=== PATIENT | female | born 1965 | race Caucasian/White ===

== ENCOUNTER 2018-12-13 11:35 | Emergency (ER) | payer MEDICARE ==
[~2018-12-13] VITALS: Ht 152.4 cm; Wt 82.7 kg
[~2018-12-13 11:35] MED LIST: ALEVE220 MG PO; [UNRECOGNIZED DRUG - OTHER] PO
[2018-12-13 11:50] VITALS: Ht 152.4 cm; Wt 82.7 kg
[2018-12-13] MEDS ORDERED: EC-NAPROSYN500 MG PO (14:03)
[2018-12-13] MEDS ORDERED: ROBAXIN500 MG PO (14:03)
[2018-12-13 14:29] VITALS: BP 185/103
== END 2018-12-13 14:28 | disposition home or self-care (01) ==
LOC: D.ER 11:35
DX: S00.83XA Contusion of other part of head, initial encounter (principal); W18.31XA Fall on same level due to stepping on an object, initial encounter; Y93.89 Activity, other specified; Y92.89 Other specified places as the place of occurrence of the external cause; S06.0X0A Concussion without loss of consciousness, initial encounter; M62.838 Other muscle spasm; S83.91XA Sprain of unspecified site of right knee, initial encounter

== ENCOUNTER 2019-03-02 15:30 | Inpatient (IN) | payer MEDICARE ==
[~2019-03-02 15:30] MED LIST changes: +EC-NAPROSYN500 MG PO; +ROBAXIN500 MG PO
[2019-03-02 16:16] LABS: APPEARANCE CLEAR (CLEAR); BILIRUBIN NEGATIVE (NEGATIVE); COLOR STRAW (YELLOW); GLUCOSE NEGATIVE (NEGATIVE); KETONE NEGATIVE (NEGATIVE); NITRITE NEGATIVE (NEGATIVE); PROTEIN TRACE mg/dL (NEGATIVE); SPECIFIC GRAVITY 1.015 (1.005-1.020); UROBILINOGEN NORMAL (NORMAL)
[2019-03-02 16:30] LABS: BASOPHILS 0.1 % (0-2); EOSINOPHILS 3.6 % (0-7); HEMATOCRIT 36.5 % (36.0-48.0); HEMOGLOBIN 12.7 g/dL (12-16); IMMATURE GRANULOCYTES 0.1 % (0-5); LYMPHOCYTES 36.7 % (15-50); MCH 29.4 pg (26.0-34.0); MCHC 34.8 g/dL (31.0-37.0); MCV 84.5 fL (80.0-100.0); MEAN PLATELET VOLUME 9.9 fL (7.4-10.4); MONOCYTES 7.1 % (2-11); NEUTROPHILS 52.4 % (40-80); PLATELET COUNT 210 10x3/uL (130-400); RBC 4.32 10x6/uL (4.00-5.40); RDW 13.1 % (11.5-14.5); WBC 7.9 10x3/uL (4.8-10.8)
[2019-03-02 16:45] LABS: ALBUMIN 3.6 g/dL (3.4-5.0); ALKALINE PHOSPHATASE 84 U/L (46-116); ALT (SGPT) 26 U/L (10-68); BILIRUBIN - TOTAL 0.98 mg/dL (0.2-1.3); CALC OSMOLALITY 279 mosm/kg (275-300); CALCIUM 8.9 mg/dL (8.5-10.1); CARBON DIOXIDE 22.4 mmol/L (21.0-32.0); CHLORIDE - SERUM 104 mmol/L (98-107); CREATININE - SERUM 0.7 mg/dL (0.6-1.3); GLUCOSE 80 mg/dL (74-106); POTASSIUM - SERUM 3.5 mmol/L (3.5-5.1); PROTEIN - SERUM 7.2 g/dL (6.4-8.2); SODIUM 140 mmol/L (136-145); UREA NITROGEN 18 mg/dL (7-18); eGFR NON AFRICAN AMERICAN > 90 mL/min (90-120)
[2019-03-02 16:59] LABS: CKMB 2.8 U/L (0.0-3.6); CREATINE KINASE 184 UL (21-215)
[2019-03-02 17:14] LABS: TROPONIN-I < 0.017 ng/mL (0.000-0.060)
--- NOTE | 2019-03-02 17:30 | NUR ---
PATIENT AWAKE AND ALERT, COLOR WNL FOR RACE. NO NEEDS NOTED. UPDATED ON PLAN OF CARE AND DELAYS IN CARE. WILL CONTINUE TO MONITOR. FAMILY AT BEDSIDE.
--- NOTE | 2019-03-02 18:30 | NUR ---
PATIENT AWAKE AND ALERT, COLOR WNL FOR RACE. RESPIRATIONS EVEN AND UNLABORED. UPDATED ON PLAN OF CARE AND DELAYS IN CARE. WILL CONTINUE TO MONITOR.
--- NOTE | 2019-03-02 19:20 | NUR ---
REPORT GIVEN TO JONAH HINTON IN SBAR FORMAT
--- NOTE | 2019-03-02 21:10 | NUR ---
ADMIT TO ROOM 2120 FROM ER. ALERT/ORIENTED. ACCOMPANIED BY FAMILY X 1. RESPS NONLABORED. TELEMETRY STARTED 42 SINUS DAVI NOTED. ER REPORTED THAT PT HAD BEEN IN SB ENTIRE TIME IN ER. ADMISSION HISTORY AND ASSESSMENT COMPLETED. IVF NS @ 100ML/HR INFUSING TO RIGHT WRIST. MONITOR AND CPOC.
[2019-03-02] MEDS ORDERED: LISINOPRIL20 MG PO (21:34)
[2019-03-02] MEDS ORDERED: CATAPRES0.1 MG (21:35)
[2019-03-02 22:34] VITALS: BMI 35.2
[2019-03-03 01:17] VITALS: BP 145/84
[2019-03-03 05:55] VITALS: BP 176/68
--- NOTE | 2019-03-03 06:08 | NUR ---
IVF NS 1LITER COMPLETED. PT RESTING HEARTRATE HAS BEEN 36 TO 50 BRADYCARDIA. PT IS ASYMPTOMATIC AND ROUSES EASILY WITH ALL CHECKING. MONITOR AND CPOC.
[2019-03-03 08:05] VITALS: BP 192/90
--- NOTE | 2019-03-03 08:41 | NUR ---
ASSESSMENT COMPLETED. ALERT AND ORIENTED.TELEMERTY SHOWS SB 45. UP AB MANI. SL TO RIGHT FOREARM. B/P 190/92. PT GIVEN APRESOLINE 10 MG PER ORDER. SR UP WITH CALL LIGHT IN REACH, WILL MONITOR
[2019-03-03] MEDS ORDERED: CELEXA20 MG PO (10:05)
[2019-03-03] MEDS ORDERED: MEXITIL 150 MG150 MG PO (10:07)
[2019-03-03] MEDS ORDERED: LISINOPRIL20 MG PO (10:08)
[2019-03-03] MEDS ORDERED: CATAPRES0.1 MG (10:10)
[2019-03-03 12:00] VITALS: BP 148/94
--- NOTE | 2019-03-03 13:09 | NUR ---
I have reviewed this patient and I concur with the Shift Assessment completed by the Licensed Practical Nurse today this shift.
[2019-03-03 14:56] VITALS: BP 169/72
--- NOTE | 2019-03-03 16:24 | NUR ---
PT LYING IN BED WITH EYES CLOSED. FAMILY AT BEDSIDE. NO DISTRESS NOTED. RESP REG AND NON LABORED.TELEMERTY SHOWS DAVI CARDIA.
--- NOTE | 2019-03-03 18:19 | NUR ---
LYING QUITELY. FAMILY AT BEDSIDE. TELEMERTY SHOWS SB. NO NEEDS VOICED
--- NOTE | 2019-03-03 19:31 | NUR ---
RECIEVED UP IN BED WITH EYES OPEN. ALERT AND ORIENTED X4. UP AD MANI. IV TO RIGHT FA SL.. HEART RATE 59 AT THIS TIME. TELEMETRY IN PLACE. DENIES ANY NEEDS AT THIS TIME.
[2019-03-03 22:04] VITALS: BP 169/74
[2019-03-04 00:04] VITALS: BP 180/76
[2019-03-04 05:41] LABS: BASOPHILS 0.1 % (0-2); EOSINOPHILS 5.1 % (0-7); HEMATOCRIT 41.2 % (36.0-48.0); HEMOGLOBIN 14.6 g/dL (12-16); IMMATURE GRANULOCYTES 0.3 % (0-5); LYMPHOCYTES 28.5 % (15-50); MCH 29.7 pg (26.0-34.0); MCHC 35.4 g/dL (31.0-37.0); MCV 83.9 fL (80.0-100.0); MEAN PLATELET VOLUME 10.5 fL (7.4-10.4); PLATELET COUNT 242 10x3/uL (130-400); RBC 4.91 10x6/uL (4.00-5.40); WBC 7.6 10x3/uL (4.8-10.8)
[2019-03-04 05:55] VITALS: BP 192/87
[2019-03-04 06:51] LABS: ALBUMIN 3.8 g/dL (3.4-5.0); ALKALINE PHOSPHATASE 89 U/L (46-116); ALT (SGPT) 29 U/L (10-68); BILIRUBIN - TOTAL 1.55 mg/dL (0.2-1.3); CALC OSMOLALITY 280 mosm/kg (275-300); CALCIUM 9.2 mg/dL (8.5-10.1); CARBON DIOXIDE 22.6 mmol/L (21.0-32.0); CHLORIDE - SERUM 103 mmol/L (98-107); CREATININE - SERUM 0.7 mg/dL (0.6-1.3); GLUCOSE 93 mg/dL (74-106); POTASSIUM - SERUM 3.4 mmol/L (3.5-5.1); PROTEIN - SERUM 7.6 g/dL (6.4-8.2); SODIUM 140 mmol/L (136-145); UREA NITROGEN 18 mg/dL (7-18); eGFR NON AFRICAN AMERICAN > 90 mL/min (90-120)
--- NOTE | 2019-03-04 07:25 | NUR ---
ASSESSMENT COMPLETED. ALERT AND ORIENTED. TELEMERTY SHOWS SB 54. UP AB MANI. DENIES ANY NEEDS. SR UP WITH CALL LIGHT IN REACH
[2019-03-04 07:55] VITALS: BP 176/98
--- NOTE | 2019-03-04 10:18 | NUR ---
I have reviewed this patient and I concur with the Shift Assessment completed by the Licensed Practical Nurse today this shift.
--- NOTE | 2019-03-04 11:31 | NUR ---
UP WALKING IN ROOM, NO NEEDS VOICED.
[2019-03-04 11:53] VITALS: BP 162/79
[2019-03-04 15:41] VITALS: BP 151/68
[2019-03-04] MEDS ORDERED: CARDURA2 MG PO (16:19)
[2019-03-04] MEDS ORDERED: PROCARDIA XL PO (16:19)
[2019-03-04] MEDS ORDERED: LISINOPRIL-HCT1 EAC7 PO (16:20)
--- NOTE | 2019-03-04 18:33 | NUR ---
PT DISCHARGED. INSTRUCTIONS GIVEN TO PT. TO PRIVATE CAR PER OTIS TINSLEY
--- NOTE | 2019-03-05 09:23 | MORECARE ---
CASE MANAGEMENT DISCHARGE SUMMARY PATIENT: LIBBY RAMOS UNIT: [id number] ADM DATE: 03/02/19 AGE: 53 : 63 SEX: F ROOM/BED: D.2121 AUTHOR: PEGGY CRUZ PHYSICIAN: REFERRING PHYSICIAN: AKILAH MERRILL MD DATE OF SERVICE: 03/05/19 Discharge Plan Patient Name: LIBBY RAMOS Facility: [facility]:[place] : 1965 Planned Disposition: Home Anticipated Discharge Date: 03/04/19 Discharge Date: 03/04/2019 Expected LOS: 2 Initial Reviewer: [email or web address] Initial Review Date: 03/05/2019 Generated: 03/05/19 10:23 am Patient Name: LIBBY RAMOS Page [phone] at 0923 All edits/amendments must be made on the electronic document DICTATION DATE: 03/05/19921 GEOGRAPHY TEACHER: DM 03/05/19921 RPT#: [id number] DC DATE:03/04/19 STATUS: DIS IN [facility] [address] [place] [address] END OF REPORT
--- NOTE | 2019-03-05 10:39 | CN ---
PATIENT NAME:LIBBY LEE MEDICAL RECORD: [id number] : 63 LOCATION:D. D.2121 ADMIT DATE: 03/02/19 ACCOUNT: [id number] CONSULTING PHYSICIAN: MARLI MARTE MD REFERRING PHYSICIAN: AKILAH MERRILL MD DATE OF CONSULTATION: 03/03/2019 ADMITTING DIAGNOSES: 1. Hypertensive emergency. 2. Hypertension. 3. Shortness of breath. 4. Angina. 5. Bradycardia. HISTORY OF PRESENT ILLNESS: Mrs. Lee presents with headache, shortness of breath, chest heaviness, and dizziness. She has had difficult to control her blood pressure. Dr. Rose has been working on her blood pressure. She is only on lisinopril 20 mg a day. She took 2 of these yesterday. She took 2 clonidine as well. She presents here. Her systolic blood pressure is over 220 and she is bradycardic with heart rate sinus in the 40s and 30s. PHYSICAL EXAMINATION: GENERAL APPEARANCE: Well-nourished, well-developed, appears stated age. Level of distress, comfortable. PSYCHIATRIC: Mental status, alert, normal affect. Orientation, oriented to time, place and person. EYES: Lids and conjunctiva, noninjected. No discharge, no pallor. ENT: Lips, teeth, gums, normal dentition. Oropharynx, no cyanosis, no pallor. NECK: Carotid arteries, bilateral normal upstroke, no bruits, no thrills. JUGULAR VEINS: No jugular venous pressure or distention. CERVICAL LYMPH NODES: Nontender, nonenlarged. THYROID: Not enlarged. Nontender. No nodules. LUNGS: Respiratory effort, unlabored. CHEST: Normal curvature. No thoracic deformity. No chest wall tenderness. Percussion, resonant. Auscultation, clear. No wheezes, no rales, no rhonchi. CARDIOVASCULAR: Precordial exam, nondisplaced. No heaves or pericardial thrills. Rate and rhythm, regular. Heart sounds, normal S1, normal S2. No S3, no gallop, no rub. Systolic murmur, not heard. Diastolic murmur, not heard. EXTREMITIES: No cyanosis, no edema. Peripheral pulses, full and equal in all extremities, except as noted. No bruits appreciated. ABDOMEN: Soft, nondistended. Normal aorta. No bruit. Nontender. No masses. Liver, nontender, no hepatomegaly. Spleen, nontender, no splenomegaly. MUSCULOSKELETAL: No joint tenderness. No joint swelling. No erythema. NEUROLOGICAL: Normal gait, normal strength, normal tone. SKIN: Warm and dry. OVERALL IMPRESSION: Shortness of breath, chest discomfort and related to the hypertension and the hypertensive emergency. Dizziness may only be related to the bradycardia. We will put her on Procardia-XL 90 along with lisinopril HCT 20/12.5 b.i.d. and see how this does. We will check back in a few hours to see how this does for her blood pressure. We would like to avoid the clonidine as it can worsen bradycardia. We will use hydralazine as well in the acute setting. TRANSINT:[id number] Voice Confirmation ID: [id number] DOCUMENT ID: [id number] CONSULT REPORT [id number] LIBBY LEE, MARLI GROVER at 1039 CC: [id number] DICTATION DATE: 03/03/1955 PILE TRIMMER: 03/03/19 1231 DIS IN 03/04/19 [place] [id number] [place] [address]
== END 2019-03-04 18:34 | disposition home or self-care (01) | DRG 305 ==
LOC: D.ER 15:30 → D.M2 19:48 → D.EDHOLD 19:48 → D.M2 20:15
PROVIDERS: Family Medicine; Family Medicine Adult Medicine; ADMIT Internal Medicine Nephrology; ATTEND Internal Medicine Nephrology
DX: I16.0 Hypertensive urgency (principal); I10 Essential (primary) hypertension; R00.1 Bradycardia, unspecified; I20.9 Angina pectoris, unspecified; R42 Dizziness and giddiness

== ENCOUNTER 2019-09-24 16:45 | Observation (INO) | payer MEDICARE ==
[~2019-09-24] VITALS: Ht 152.4 cm; Wt 74.1 kg
--- NOTE | ~2019-09-24 | HEMODYNAMI ---
PATIENT:LIBBY RAMOS MEDICAL RECORD: [id number] : 63 [address] [id number] ADMISSION DATE: 09/24/19 Generatedon:09/25/201915:29 Patient name: LIBBY RAMOS Patient #: [id number] SSN: DO B: 1965 Date of study: 09/25/2019 Page: Of Hemodynamic Procedure Report Patient Data Patient Demographics Procedure consent was obtained First Name: LIBBY Gender: Female Last Name: RACHEL : 1965 Middle Initial: DANA Age: 54 year(s) Patient #: [id number] Race: Unknown Additional ID: [id number] Contact details Address: [address] [place] [address] State: [place] City: [facility] Zip code: [address] Admission Admission Data Admission Date: 09/24/2019 Admission Time: 21:03 Room #: D.2124 Lab Results Lab Result Date: 09/25/2019 Lab Result Time: 0:00 Biochemistry Name Units Result Min Max BUN mg/dl 27 --(----)-* 7 18 Creatinine mg/dl 0.8 --(-*--)-- 0.6 1.3 eGFR ml/min 79.14353 *-(----)-- 90 120 NONAFRICAN CBC Name Units Result Min Max Hematocrit % 38.1 *-(----)-- 42 54 Hemoglobin g/dl 12.6 -*(----)-- 13.5 17.5 Procedure Procedure Types Cath Procedure Diagnostic Procedure LHC LHC w/Coronaries Procedure Description Procedure Date Procedure Date: 09/25/2019 Procedure Start Time: 15:14 Procedure End Time: 15:27 Procedure Staff Name Function Wilian Rios MD Performing Physician Bibi Wilkins RT Monitor Carmenza Gutierrez RT Scrub Bhupinder Valdes RN Nurse Procedure Data Cath Procedure Fluoroscopy Diagnostic fluoroscopy Total fluoroscopy Time: 1.1 time: 1.1 min min Diagnostic fluoroscopy Total fluoroscopy dose: 337 dose: 337 mGy mGy Contrast Material Contrast Material Type Amount (ml) Isovue 370 47 Entry Location Entry Primary Successful Side Size Upsize Upsize Entry Closure Succes sful Closure Location (Fr) 1 (Fr) 2 (Fr) Remarks Device Remarks Femoral Right 5 Fr Exoseal artery Estimated blood loss: 5 ml Diagnostic catheters Device Type Used For End Catheter Placement MULTIPACK JL 4.0 5Fr Procedure catheter MULTIPACK 3DRC 5Fr Procedure catheter MULTIPACK Pigtail 5 Fr Procedure catheter Procedure Complications No complications Procedure Medications Medication Administration Route Dosage Oxygen etCO2 Nasal cannula 2 l/min Lidocaine 2% added to field 20 Heparin Flush Bag added to field 2 bags (1000units/500ml NS) 0.9% NaCl I.V. 100 ml/hr Versed I.V. 1 mg Fentanyl I.V. 50 mcg Versed I.V. 1 mg Fentanyl I.V. 50 mcg Versed I.V. 1 mg Hemodynamics Rest HGB: 12.6 (g/dl) Heart Rate: 59 (bpm) Pressure Samples Time Site Value (mmHg) Purpose Heart Use Rate(bpm) 15:18 LV 127/12,15 Snapshot 68 15:19 AO 117/80(100) Pullback 67 Gradients Valve Time Site Site 2 Mean SEP/DFP Peak To Heart Use 1 (mmHg) (sec/min) Peak Rate (mmHg) (bpm) Aortic 15:19 LV AO 20 18 67 117/80(100) Calculations Valve P-P Mean Valve Index Valve Source Name Gradient Area Flow (cm2) Aortic 20 20 Snapshots Pre Cath Intra NCS Post Cath Vital Signs Time Heart Resp SPO2 etCO2 NIBP (mmHg) Rhythm Pain Sedation Rate (ipm) (%) (mmHg) Status Level (bpm) 15:02:22 62 19 96 0 167/107(126) NSR 0 (11) 10(A) , No pain 15:06:43 58 13 95 39.7 139/87(97) NSR 0 (11) 10(A) , No pain 15:11:01 56 14 94 32.2 119/64(89) NSR 0 (11) 10(A) , No pain 15:15:10 56 14 96 31.4 118/63(81) NSR 0 (11) 10(A) , No pain 15:19:16 65 12 97 36.7 134/75(100) NSR 0 (11) 9(A) , No pain 15:23:28 58 15 98 38.2 130/71(90) NSR 0 (11) 9(A) , No pain 15:27:38 61 19 98 38.9 122/75(91) NSR 0 (11) 9(A) , No pain Medications Time Medication Route Dose Verified Delivered Reason Notes Eff ectiveness by by 15:09:15 Oxygen etCO2 2 Wilian Bhupinder used for Nasal l/min St Juancarlos Valdes RN procedure cannula 15:09:23 Lidocaine 2% added 20ml Wilian Wilian for local to vial [facility] anesthetic field MD GROEVR 15:09:29 Heparin Flush added 2 Wilian Wilian used for Bag to bags [facility] procedure (1000units/500ml field MD GROVER NS) 15:09:38 0.9% NaCl I.V. 100 Wilian Buffie Per ml/hr St Juancarlos Valdes RN physician 15:12:44 Versed I.V. 1 mg Wilian [address]ie for St Juancarlos Valdes RN sedation 15:12:50 Fentanyl I.V. 50 Wilian [address] for mcg [facility] Juancarlos Valdes RN sedation 15:15:36 Versed I.V. 1 mg Wilian Moodyie for St Juancarlos Valdes RN sedation 15:15:39 Fentanyl I.V. 50 Wilian [address] for mcg [facility] Juancarlos Valdes RN sedation 15:18:19 Versed I.V. 1 mg Wilian Buffie for St Juancarlos Valdes RN sedation Procedure Log Time Note 14:31:23 Procedure Status Urgent Heart Cath (IP). 14:31:25 Bhupinder Valdes RN sent for patient. Start room use. 14:31:26 Time tracking: Regular hours (M-F 7:00 - 5:00) 14:31:29 Plan of Care:Hemodynamics will remain stable., Cardiac rhythm will remain stable., Comfort level will be maintained., Respiratory function will remain adequate., Patient/ family verbilizes understanding of procedure., Procedure tolerated without complication., Recovers from procedure without complications.. 14:31:30 Signed procedure consent form obtained from patient. 14:48:14 Patient received from Med II to CCL 1 Alert and oriented. Tansferred to table in Supine position. 14:48:15 Warm blankets applied, and esther hugger turned on for patient comfort. 14:48:16 Correct patient and procedure confirmed by team. 14:48:17 ECG and BP/O2 sat monitors applied to patient. 14:48:21 H&P Date Dictated: 09/25/2019 Within 30 days and on chart.. 14:48:21 Pre-procedure instructions explained to patient. 14:48:21 Pre-op teaching completed and patient verbalized understanding. 14:48:23 Family in patients room. 14:48:24 Patient NPO since Midnight. 14:48:27 Is the patient allergic to Iodine/contrast media? No. 14:48:29 Is patient on blood thinner?No 14:48:31 Patient diabetic? No. 14:48:35 Patient not . Patient is over age 55. 14:48:37 Previous problem with sedation/anesthesia? No ? 14:48:37 Snore? Yes 14:48:39 Sleep apnea? No 14:48:40 Deviated septum? No 14:48:40 Opens mouth fully? Yes 14:48:41 Sticks out tongue? Yes 14:48:46 Airway obstruction? No ? 14:48:51 Dentures? Yes OUT 14:49:01 Patient pain scale 0/10 ?. 14:49:06 IV patent on arrival in right hand with 0.9% NaCl at [facility]. 14:59:05 Pre procedure: right dorsailis pedis pulse 2+ Normal; easily identifiable; not easily obliterated 14:59:38 Lab Result : BUN 27 mg/dl 14:59:38 Lab Result : eGFR NONAFRICAN 79.94018 ml/min 14:59:38 Lab Result : Creatinine 0.8 mg/dl 14:59:38 Lab Result : Hemoglobin 12.6 g/dl 14:59:38 Lab Result : Hematocrit 38.1 % 14:59:45 Lab results completed and on chart. 14:59:48 Stress Test: no; N/A ? 15:00:59 Risk of Mortality: .2 15:01:01 Risk of blood transfusion: .5 15:01:04 Risk of LYLY: .4 15:01:07 RT GROIN PREPPED DUE TO THE LOCATION OF THE IV IN THE RIGHT HAND 15:01:08 Right groin area was prepped with chlora-prep and draped in sterile fashion 15:01:09 Alarms reviewed by R. N. 15:01:10 Sharps counted by scrub and verified by REvitaN. 15:01:14 Vital chart was started 15:01:17 Baseline sample Acquired. 15:01:22 Rhythm: sinus bradycardia 15::24 Full Disclosure recording started 15:01:31 Use device set Femoral Dx 15:01:32 ACIST Syringe (90057) opened to sterile field. 15:01:33 Bag Decanter (2002S) opened to sterile field. 15:01:34 ACIST Hand Control (08317) opened to sterile field. 15:01:35 ACIST Manifold (14051) opened to sterile field. 15:01:36 Tegaderm 4 x 4 (1626W) opened to sterile field. 15:01:38 Medline Cath Pack (OMPP25893) opened to sterile field. 15:01:40 DIAGNOSTIC Multipack 5Fr catheter set (BM9016) opened to sterile field. 15:01:41 SHEATH 5FR Dell (WJA969) opened to sterile field. 15:01:41 EMERALD Guide Wire (395-772) opened to sterile field. 15:09:15 Oxygen 2 l/min etCO2 Nasal cannula was administered by Bhupinder Valdes RN; used for procedure; Verbal order read back and verified. 15:09:23 Lidocaine 2% 20ml vial added to field was administered by Wilian Rios MD; for local anesthetic; Verbal order read back and verified. 15:09:29 Heparin Flush Bag (1000units/500ml NS) 2 bags added to field was administered by Wilian Rios MD; used for procedure; Verbal order read back and verified. 15:09:38 0.9% NaCl 100 ml/hr I.V. was administered by Bhupinder Valdes RN; Per physician; Verbal order read back and verified. 15:11:17 --------ALL STOP TIME OUT------ 15:11:18 Final Timeout: patient, procedure, and site verified with staff and physician. All members of the team are in agreement. 15:11:19 Right groin site verified by team. 15:11:22 Fire Safety Assessment: A--An alcohol-based skin anteseptic being used preoperatively., C--Open oxygen or nitrous oxide is being used., D--An ESU, laser, or fiber-optic light is being used. 15:11:25 Physical assessment completed. ASA score P 2 - A patient with mild systemic disease as per Wilian Rios MD. 15:11:43 2) 60-89 Mildly reduced kidney function, and other findings (as for stage 1) point to kidney disease. 15:11:50 Maximum allowable contrast dose (3.7 X eGFR X 0.75)219 ml. 15:11:55 Sedation plan: IV Moderate Sedation Medication:Versed, Fentanyl 15:12:44 Versed 1 mg I.V. was administered by Bhupinder Valdes RN; for sedation; Verbal order read back and verified. 15:12:50 Fentanyl 50 mcg I.V. was administered by Bhupinder Valdes RN; for sedation; Verbal order read back and verified. 15:13:35 Procedure started. 15:13:38 Zero performed for pressure channel P1 15:14:08 Local anesthetic to right femoral artery with Lidocaine 2% by Wilian Rios MD.INITIAL ACCESS ONLY 15:14:48 A 5 Fr sheath was inserted into the Right Femoral artery 15:14:57 A MULTIPACK JL 4.0 5Fr catheter was advanced over the wire and used for Procedure. 15:15:36 Versed 1 mg I.V. was administered by Bhupinder Valdes RN; for sedation; Verbal order read back and verified. 15:15:39 Fentanyl 50 mcg I.V. was administered by Bhupinder Valdes RN; for sedation; Verbal order read back and verified. 15:16:00 LCA angiography performed. 15:16:19 Catheter removed. 15:16:26 A MULTIPACK 3DRC 5Fr catheter was advanced over the wire and used for Procedure. 15:17:33 RCA angiography performed. 15:17:34 ACCDominant side:Right 15:17:35 Catheter removed. 15:17:41 A MULTIPACK Pigtail 5 Fr catheter was advanced over the wire and used for Procedure. 15:18:19 Versed 1 mg I.V. was administered by Bhupinder Valdes RN; for sedation; Verbal order read back and verified. 15:18:46 LV gram done using FISH 15:18:48 Injector settings: Ml/sec: 10, Volume: 20, 15:18:55 LV hemodynamics recorded. 15:18:58 EF : 55 % 15:19:01 Catheter removed. 15:19:19 EXOSEAL 5Fr (EX500) opened to sterile field. 15:19:39 Sheath removed intact; hemostasis achieved with Exoseal to the Right Femoral artery. 15:20:08 Procedure ended.(Physican Out) 15:20:23 Fluoroscopy time 01.10 minutes. 15:20:27 Fluoroscopy dose: 337 mGy 15:20:27 Flurop Dose total: 337 15:20:36 Dose Area Product 33048 mGy/cm. 15:20:42 Contrast amount:Isovue 370 47ml. 15:20:45 Maximum allowable dose exceeded? No. 15:20:46 Sharps counted by scrub and verified by R.N. 15:20:50 Post-op/insertion site Right Femoral artery dressed using a 4 x 4 and Tegaderm. 15:20:52 Post-procedure physical assessment completed. ASA score P 2 - A patient with mild systemic disease as per Wilian Rois MD. 15:20:57 Post procedure rhythm: unchanged. 15:21:03 Estimated blood loss: 5 ml 15:21:05 Post procedure instruction explained to patient.Patient verbalizes understanding. 15:21:05 Patient needs reinforcement of post procedure teaching. 15:21:40 Procedure and supply charges have been captured, reviewed, submitted and are correct. 15:21:50 Procedure Complication : No complications 15:21:[address] [facility] Findings: mild to moderate CAD (<70%) 15:21:58 Operative report dictated upon procedure completion. 15:21:58 See physician's report for complete and final results. 15:26:59 Vital chart was stopped 15:27:04 Report given to [facility]. 15:27:10 Patient transfered to [facility] with Bed. 15:27:12 Procedure ended. 15:27:12 Full Disclosure recording stopped 15:27:15 End room use (Document Last) 15:28:23 End room use (Document Last) 15:28:46 End room use (Document Last) Device Usage Item Name Manufacture Quantity Catalog Hospital Part Current Minimal L ot# / Number Charge Number Stock Stock Serial# Code ACIST Acist 1 83024 753298 905606 484059 20 Syringe Medical (84804) Systems Inc Bag Microtek 1 103269 31562 429509 5 Decanter Medical Inc. () ACIST Hand Acist 1 94312 473166 022553 191263 5 Control Medical (74736) Systems Inc ACIST Acist 1 44984 155866 946151 824415 5 Manifold Medical (31760) Systems Inc Tegaderm 4 3M 1 1626W 904641 638680 570745 5 x 4 (1626W) Medline Medline 1 [id number] 576874 28048 926993 5 Cath Pack ([id number]) DIAGNOSTIC Cardinal 1 JW1283 041320 06923 046340 30 Multipack Red Swoosh 5Fr catheter set (FU8482) SHEATH 5FR Terumo 1 FKQ800 609737 551740 601525 5 Dell (RIE888) EMERALD Cardinal 1 502-455 474222 545242 845610 5 Guide Wire Health (502-473) MULTIPACK Cardinal 1 497300 5 JL 4.0 5Fr Health catheter MULTIPACK Cardinal 1 319873 5 3DRC 5Fr Red Swoosh catheter MULTIPACK Cardinal 1 326614 5 Pigtail 5 Health Fr catheter EXOSEAL 5Fr Cardinal 1 EX500 046963 352244 580956 10 (EX500) Health Signature Audit [place] Stage Time Signature Unsigned Intra-Procedure 09/25/2019 Bibi Wilkins 3:28:23 PM RT(R) Intra-Procedure 09/25/2019 Bhupinder Valdes RN 3:28:46 PM Intra-Procedure 09/25/2019 Wilian Stover 3:29:13 PM Juancarlos [place] [address] [address] [place] [address]
[~2019-09-24 16:45] MED LIST changes: +CARDURA2 MG PO; +CATAPRES0.1 MG; +CELEXA20 MG PO; +LISINOPRIL-HCT1 EAC7 PO; +LISINOPRIL20 MG PO; +MEXITIL 150 MG150 MG PO; +PROCARDIA XL PO
[2019-09-24] MEDS ORDERED: COREG 3.1253.125 MG PO (17:09)
[2019-09-24 17:35] VITALS: BP 128/67
[2019-09-24 18:07] LABS: BASOPHILS 0.1 % (0-2); EOSINOPHILS 1.8 % (0-7); HEMATOCRIT 38.7 % (36.0-48.0); HEMOGLOBIN 12.7 g/dL (12-16); IMMATURE GRANULOCYTES 0.3 % (0-5); LYMPHOCYTES 30.1 % (15-50); MCH 29.8 pg (26.0-34.0); MCHC 32.8 g/dL (31.0-37.0); MCV 90.8 fL (80.0-100.0); MEAN PLATELET VOLUME 9.8 fL (7.4-10.4); MONOCYTES 10.2 % (2-11); NEUTROPHILS 57.5 % (40-80); PLATELET COUNT 211 10x3/uL (130-400); RBC 4.26 10x6/uL (4.00-5.40); RDW 13.4 % (11.5-14.5); WBC 9.4 10x3/uL (4.8-10.8)
[2019-09-24 18:33] LABS: CALC OSMOLALITY 286 mosm/kg (275-300); CALCIUM 8.9 mg/dL (8.5-10.1); CARBON DIOXIDE 27.3 mmol/L (21.0-32.0); CHLORIDE - SERUM 106 mmol/L (98-107); CREATININE - SERUM 0.8 mg/dL (0.6-1.3); GLUCOSE 99 mg/dL (74-106); POTASSIUM - SERUM 3.7 mmol/L (3.5-5.1); SODIUM 141 mmol/L (136-145); UREA NITROGEN 29 mg/dL (7-18); eGFR NON AFRICAN AMERICAN 79 mL/min (90-120)
[2019-09-24 18:38] LABS: PROTIME 12.7 SECONDS (11.6-15.0)
[2019-09-24 18:39] LABS: APTT 27.6 SECONDS (22.8-39.4)
[2019-09-24 18:53] LABS: ALBUMIN 3.5 g/dL (3.4-5.0); ALKALINE PHOSPHATASE 97 U/L (46-116); ALT (SGPT) 34 U/L (10-68); CREATINE KINASE 93 UL (21-215); PROTEIN - SERUM 7.2 g/dL (6.4-8.2)
[2019-09-24 18:57] LABS: TROPONIN-I < 0.017 ng/mL (0.000-0.060)
--- NOTE | 2019-09-24 19:12 | NUR ---
REPROT GIVEN TO [place]
[2019-09-24 20:52] LABS: CKMB 0.8 U/L (0.0-3.6); CREATINE KINASE 89 UL (21-215)
[2019-09-24 20:54] LABS: TROPONIN-I < 0.017 ng/mL (0.000-0.060)
[2019-09-24] MEDS ORDERED: LISINOPRIL-HCT1 EAC8 PO (21:42)
[2019-09-24] MEDS ORDERED: CELEXA20 MG PO (22:24)
[2019-09-24 23:45] VITALS: BP 148/76; Ht 152.4 cm; Wt 74.1 kg
[2019-09-25 02:50] LABS: BASOPHILS 0.1 % (0-2); EOSINOPHILS 3.1 % (0-7); HEMATOCRIT 38.1 % (36.0-48.0); HEMOGLOBIN 12.6 g/dL (12-16); IMMATURE GRANULOCYTES 0.2 % (0-5); LYMPHOCYTES 39.7 % (15-50); MCHC 33.1 g/dL (31.0-37.0); MCV 90.7 fL (80.0-100.0); MEAN PLATELET VOLUME 9.8 fL (7.4-10.4); MONOCYTES 8.5 % (2-11); NEUTROPHILS 48.4 % (40-80); PLATELET COUNT 227 10x3/uL (130-400); RDW 13.3 % (11.5-14.5); WBC 8.1 10x3/uL (4.8-10.8)
[2019-09-25 02:54] LABS: APTT 28.2 SECONDS (22.8-39.4); PROTIME 12.7 SECONDS (11.6-15.0)
[2019-09-25 03:07] LABS: ALBUMIN 3.3 g/dL (3.4-5.0); ALKALINE PHOSPHATASE 84 U/L (46-116); ALT (SGPT) 32 U/L (10-68); CALC OSMOLALITY 285 mosm/kg (275-300); CALCIUM 8.6 mg/dL (8.5-10.1); CHLORIDE - SERUM 106 mmol/L (98-107); CKMB 0.7 U/L (0.0-3.6); CREATINE KINASE 72 UL (21-215); CREATININE - SERUM 0.8 mg/dL (0.6-1.3); GLUCOSE 91 mg/dL (74-106); MAGNESIUM - SERUM 1.8 mg/dL (1.8-2.4); PHOSPHOROUS 3.9 mg/dL (2.5-4.9); POTASSIUM - SERUM 3.8 mmol/L (3.5-5.1); PRO BNP 25 pg/mL (0-125); PROTEIN - SERUM 6.8 g/dL (6.4-8.2); SODIUM 141 mmol/L (136-145); THYROID STIMULATING HORMONE 2.11 uIU/mL (0.36-3.74); TROPONIN-I < 0.017 ng/mL (0.000-0.060); UREA NITROGEN 27 mg/dL (7-18); eGFR NON AFRICAN AMERICAN 79 mL/min (90-120)
--- NOTE | 2019-09-25 03:19 | NUR ---
RESTING WITH EYES CLOSED, RESPERATIONS EVEN, NO S/S DISTRESS NOTED.
[2019-09-25 04:00] VITALS: BP 146/80
[2019-09-25 08:00] VITALS: BP 154/64
--- NOTE | 2019-09-25 08:02 | NUR ---
REPORT RECEIVED. WILL CONTINUE WITH POC. PT CURRENTLY LYING SEMI FOWLERS. CALL LIGHT W/I REACH. PT IS AAO AND UP AD MANI. RR EVEN AND UNLABORED ON RA. NS INFUSING @75ML/HR VIA R.HAND PIV. NO S/S OF DISTRESS NOTED. PT DENIES ANY NEEDS AT THIS TIME. WILL CTM.
[2019-09-25 08:48] LABS: CKMB 0.8 U/L (0.0-3.6); CREATINE KINASE 70 UL (21-215)
[2019-09-25 08:50] LABS: TROPONIN-I < 0.017 ng/mL (0.000-0.060)
[2019-09-25 09:02] LABS: CHOL - HDL RATIO 4.1 ratio (2.3-4.1); LDL-HDL RATIO 2.8 ratio (1.5-3.5)
--- NOTE | 2019-09-25 09:24 | NUR ---
RECEIVED VERBAL ORDERS FROM THAT PT CAN HAVE LIGHT BREAKFAST. ORDER PLACED. NOTIFIED THAT PT RECEIVED AM DOSE OF LOVENOX. HE STATED THAT WAS ACCEPTABLE AND THAT SHE WOULD BE DONE THIS AFTERNOON. WILL SIGN CONSENTS. WILL CTM.
--- NOTE | 2019-09-25 11:15 | CN ---
PATIENT NAME:LIBBY RAMOS MEDICAL RECORD: [id number] : 63 LOCATION:D. D.2124 ADMIT DATE: 09/24/19 ACCOUNT: [id number] CONSULTING PHYSICIAN: LEIGHA MADDEN MD REFERRING PHYSICIAN: FELIPE SHAH MD DATE OF CONSULTATION: 09/25/2019 HISTORY OF PRESENT ILLNESS: A 54-year-old female with no known history of coronary artery disease, has history of hypertension, hyperlipidemia, currently on therapy, strong family history of coronary artery disease, admitted for a week and 10-day history of progressive chest tightness and pressure, moderately controlled blood pressure. Finally, presented to ER with rest symptomology. Pain is described as pressure, tightness, radiating to the left arm, currently without dyspnea. We are asked to see her concerning her cardiovascular status. PAST MEDICAL HISTORY: Includes; 1. History of hypertension. 2. Hyperlipidemia. MEDICATIONS: Typically include Lisinopril and hydrochlorothiazide 10/12.5 one p.o. b.i.d., Celexa 10 mg p.o. every day. SOCIAL HISTORY: Works fulltime, nonsmoker, nondrinker. Easily takes care of all her ADLs. ALLERGIES: PHENERGAN. REVIEW OF SYSTEMS: The patient reports easy bruising but reports no swollen glands. The patient reports no fever, no night sweats, no significant weight gain, no significant weight loss. No significant exercise tolerance. The patient reports no dry eyes, no irritation, no vision change. Patient reports no difficulty hearing and no ear pain. Patient reports no frequent nose bleeds or nose and sinus problems. Patient reports on arm pain on exertion. No shortness of breath while lying down. No history of heart murmur. Patient reports no cough, no wheezing or coughing up blood. Patient reports no abdominal pain, no vomiting. Normal appetite. No diarrhea and not vomiting blood. No nausea and no constipation. Patient reports no incontinence. No difficulty urinating. No hematuria. No increased frequency. Patient reports no muscle aches. No weakness, no arthralgias, no back pain. No swelling of the extremities. Patient reports no abnormal mole, no jaundice, no rashes. Reports no loss of consciousness. No weakness and no numbness. No seizures, dizziness, or headaches. The patient reports no depression, no sleep disturbance, feeling safe in a relationship and no alcohol abuse. Patient reports on fatigue. Reports no runny nose or sinus pressure. No itching, no hives, and no frequent sneezing. PHYSICAL EXAMINATION: GENERAL: Pleasant female in no acute distress, appears stated age. VITAL SIGNS: Blood pressure 146/80, pulse 81 and regular. HEENT: Normocephalic, atraumatic. NECK: No JVD or bruit. HEART: Regular. Questionable S4 gallop. LUNGS: Good air excursion. ABDOMEN: Soft, nontender. EXTREMITIES: Pulses 2+ with no edema. CONSULT REPORT [id number] LIBBY RAMOS DIAGNOSTIC DATA: EKG shows poor R-wave progression. IMPRESSION: Acute coronary syndrome. PLAN: Angiography, intervention based on the above. TRANSINT:[id number] Voice Confirmation ID: [id number] DOCUMENT ID: [id number] LEIGHA MADDEN MD at 1115 CC: [id number] DICTATION DATE: 09/25/1949 SMELTER LINER: 09/25/19 0958 ADM [place] [id number] [place] [id number]
[2019-09-25 12:00] VITALS: BP 114/66
--- NOTE | 2019-09-25 15:36 | NUR ---
I have reviewed this patient and I concur with the Shift Assessment completed by the Licensed Practical Nurse today this shift.
--- NOTE | 2019-09-25 15:50 | NUR ---
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 RIGHT FEM CATH SITE IS C/D/I WITH NO S/S OF HEMATOMA PRESENT. PERIPHERAL PULSES BILATERALLY EVEN AND STRONG. NS INFUSING @200ML/HR VIA R.HAND PIV. NO S/S OF DISTRESS NOTED. WILL CTM.
--- NOTE | 2019-09-25 18:30 | NUR ---
PT DISCHARGED HOME VIA WHEELCHAIR WITH FAMILY. TELEMETRY REMOVED AND RETURNED. PIV REMOVED WITH CATHETER TIP FULLY INTACT. PT SIGNED PROPER DISCHARGE INSTRUCTIONS AND REMOVED ALL VALUABLES FROM THE ROOM.
--- NOTE | 2019-09-26 09:49 | MORECARE ---
CASE MANAGEMENT DISCHARGE SUMMARY PATIENT: LIBBY RAMOS UNIT: [id number] ADM DATE: 09/24/19 AGE: 54 : 63 SEX: F ROOM/BED: D.7424 AUTHOR: PEGGY CRUZ PHYSICIAN: REFERRING PHYSICIAN: FELIPE SHAH MD DATE OF SERVICE: 09/26/19 Discharge Plan Patient Name: LIBBY RAMOS Facility: [facility]:[place] : 1965 Planned Disposition: Home Anticipated Discharge Date: 09/25/19 Discharge Date: 09/25/2019 Expected LOS: 1 Initial Reviewer: [id number] Initial Review Date: 09/26/2019 Generated: 09/26/19 10:49 am Patient Name: LIBBY RAMOS Page [id number] at 0949 All edits/amendments must be made on the electronic document DICTATION DATE: 09/26/19948 BUNDLE BREAKER: CONG 09/26/19948 RPT#: [id number] DC DATE:09/25/19 STATUS: DIS IN [facility] [address] [place] [address] END OF REPORT
--- NOTE | 2019-09-30 08:48 | OP ---
PATIENT NAME: LIBBY RAMOS MEDICAL RECORD: [id number] :63 LOCATION:D.M2 D.2124 ADMISSION DATE:09/24/19 SURGEON: LEIGHA MADDEN MD DATE OF OPERATION: 09/25/2019 PROCEDURE: Left heart catheterization, selective coronary angiography, right femoral artery approach. CATHETERS: A 5-Greenlandic sheath, 5/4 left and right Dominik, 5/4 pig. The procedure was tolerated. The patient returned to the [place]uca. Sheath removed. ExoSeal device placed. FINDINGS: Left ventriculography in 30-degree FISH view: Normal wall motion and normal systolic function. CORONARY ANATOMY: LEFT MAIN: Left main is free of disease. LAD: Free of disease in the diagonal system. CIRCUMFLEX: Free of disease in the marginal system. RIGHT CORONARY ARTERY: Somewhat codominant system. Free of disease. IMPRESSION: Normal LV systolic function, normal anatomy. TRANSINT:[id number] Voice Confirmation ID: [id number] DOCUMENT ID: [id number] LEIGHA MADDEN MD at 0848 CC: [id number] DICTATION DATE: 09/25/19 1524 DOBBY LOOMS PEGGER: 09/25/19 1758 DIS IN 09/25/19 [facility] [address] [place] [address]
== END 2019-09-25 18:31 | disposition home or self-care (01) ==
LOC: D.ER 16:45 → D.M2 21:03 → OBSVTIME 21:11 → D.M2 09-25 18:31
PROVIDERS: Family Medicine; Internal Medicine Interventional Cardiology; ADMIT Family Medicine Adult Medicine; ATTEND Family Medicine Adult Medicine
DX: R07.9 Chest pain, unspecified (principal); I10 Essential (primary) hypertension; E78.5 Hyperlipidemia, unspecified; K21.9 Gastro-esophageal reflux disease without esophagitis

== ENCOUNTER → 2020-05-04 19:14 | Outpatient (CLI) | payer MEDICARE ==
[2019-09-24 23:45] VITALS: BMI 37.1
[~2020-05-04 19:14] MED LIST changes: +COREG 3.1253.125 MG PO; +LISINOPRIL-HCT1 EAC8 PO
[2020-05-04 20:30] LABS: CHOL - HDL RATIO 3.6 ratio (2.3-4.1); LDL-HDL RATIO 2.2 ratio (1.5-3.5)
== END | disposition home or self-care (01) ==
LOC: D.LABREF 19:14
PROVIDERS: ATTEND Internal Medicine Cardiovascular Disease
DX: E78.5 Hyperlipidemia, unspecified (principal)